=== PATIENT | female | born 1980 | race Hispanic/Latino ===

== ENCOUNTER 2020-09-06 07:57 | Emergency (ER) | payer OTHER ==
[~2020-09-06] VITALS: Ht 149.9 cm; Wt 102.1 kg
[2020-09-06 08:42] LABS: BILIRUBIN,URINE NEGATIVE (NEGATIVE); CLARITY,URINE CLEAR (CLEAR); COLOR,URINE YELLOW (YELLOW); KETONES,URINE NEGATIVE (NEGATIVE); LEUKOCYTE ESTERASE ,URINE NEGATIVE (NEGATIVE); NITRITE,URINE NEGATIVE (NEGATIVE); PROTEIN,URINE DIPSTICK NEGATIVE (NEGATIVE); URINE UROBILINOGEN 0.2 mg/dL (0.2 - 1)
[2020-09-06 08:58] LABS: BACTERIA,URINE FEW /HPF; EPITHELIAL CELLS,URINE RARE /LPF; WBC,URINE (MAN) 0-5 /HPF (0-5)
[2020-09-06] MEDS ORDERED: KETOROLAC TROMETHAMINE 30 MG/ML VIAL IM STA (09:03)
[2020-09-06] MEDS ORDERED: TYLENOL # 31 EA PO (11:28)
[2020-09-06 11:33] VITALS: BP 142/86
== END 2020-09-06 11:36 | disposition home or self-care (01) ==
LOC: ER 08:30
DX: M54.5 Low back pain (principal); N13.2 Hydronephrosis with renal and ureteral calculous obstruction; R35.0 Frequency of micturition; K57.30 Diverticulosis of large intestine without perforation or abscess without bleeding; K76.0 Fatty (change of) liver, not elsewhere classified; I10 Essential (primary) hypertension; E11.9 Type 2 diabetes mellitus without complications
CPT/HCPCS: 74176; 81001; 81025; 87086; 99284; J1885